=== PATIENT | male | born 1985 | race Caucasian/White ===

== ENCOUNTER 2017-01-04 18:18 | Emergency (ER) | payer OTHER ==
[2017-01-04 18:32] VITALS: TEMP 97.6; BMI 21.8
[2017-01-04] MEDS ORDERED: SODIUM CHLORIDE 1,000 ML IV STA (19:03)
[2017-01-04] MEDS ORDERED: FOLIC ACID INJECTION - 1 MG, THIAMINE HCL 100 MG, MULTIVIT INJECTION ADULT 10 ML in SOD... IVPB ONE (19:04)
--- NOTE | 2017-01-04 19:04 | PDOC ---
History of Present Illness - General History Source: Parent(s) Exam Limitations: Intoxication - History of Present Illness Initial Comments: 31 yo M with a PMHx of asperger's, alcoholism, pancreatitis presents with mother with report of ETOH intoxication. Upon evaluation, patient is somnolent, lethargic and vomiting coffee ground emesis. Patient has extensive scattered superficial abrasions to torso and extremities. . PCP: Dr: Alba Mckeon ([facility]) Psych: Unique chester ([facility]) <Ila Lopez - Last Filed: 01/04/17 19:21> <Magy Escobar - Last Filed: 01/05/17 02:12> - General Chief Complaint: Alcohol intoxication Stated Complaint: INTOX Time Seen by Provider: 01/04/17 18:25 Past History <Ila Lopez - Last Filed: 01/04/17 19:21> - Past Medical History Psychiatric Problems: Yes (depression) Other medical history: autism aspergers. - Psycho/Social/Smoking Cessation Hx Anxiety: No Suicidal Ideation: No Smoking History: Unknown if ever smoked Have you smoked in the past 12 months: No Information on smoking cessation initiated: No Hx Alcohol Use: No Drug/Substance Use Hx: No Substance Use Type: None <Magy Escobar - Last Filed: 01/05/17 02:12> - Past Medical History Allergies/Adverse Reactions: Allergies Allergy/AdvReac Type Severity Reaction Status Date / Time No Allergy Information Allergy Verified 01/04/17 18:32 Available Home Medications: Ambulatory Orders Buspirone HCl [Buspar -] 5 mg PO BID 01/04/17 Clonazepam [Klonopin] 5 mg PO HS 01/04/17 Escitalopram Oxalate [Lexapro -] 10 mg PO DAILY 01/04/17 Review of Systems - Review of Systems Able to Perform ROS?: No (Intoxication) <Ila Lopez - Last Filed: 01/04/17 19:21> *Physical Exam - Vital Signs Last Vital Signs Temp Pulse Resp BP Pulse Ox 97.6 F 98 H 18 108/62 100 01/04/17 18:24 01/04/17 18:24 01/04/17 18:24 01/04/17 18:24 01/04/17 18:24 - Physical Exam Comments: GENERAL: Somnolent. Lethargic. Vomiting coffee ground emesis. HEENT: Normocephalic, atraumatic. PERRL, EOM intact. CARDIOVASCULAR: Normal S1, S2. Regular rate and rhythm. PULMONARY: Clear to auscultation bilaterally. ABDOMEN: Soft, non-distended, non-tender. EXTREMITIES: Normal ROM in all four extremities. Extensive scattered superficial abrasions to torso and extremities. SKIN: Warm, dry. No rash NEUROLOGICAL: No focal neurological deficits. <Ila Lopez - Last Filed: 01/04/17 19:21> - Vital Signs Last Vital Signs Temp Pulse Resp BP Pulse Ox 97.6 F 98 H 18 108/62 100 01/04/17 18:24 01/04/17 18:24 01/04/17 18:24 01/04/17 18:24 01/04/17 18:24 <Magy Escobar - Last Filed: 01/05/17 02:12> ED Treatment Course - LABORATORY CBC & Chemistry Diagram: 01/04/17 19:30 01/04/17 19:30 <Magy Escobar - Last Filed: 01/05/17 02:12> Medical Decision Making - Medical Decision Making 01/05/17 02:06 31 yo male lethargic but vomiting after alcohol binge PMH depression,asperger;s ,pancreatitis. Pt has multiple scattered superficial lacerations and eccchymosis to head,extremities ct scan head no acute intracranial pathology labs reviewed, lipase elevated,LFT wnl- ct scan abd.pel _ no pancreatitis, etoh was 244 pt received banana bag,IVF pt observed for 6 hours and parents were present -he was able to eat and walk to the bathroom unaided -discharged home with his parents Alcoholic gastritis/alcohol abuse <Magy Escobar - Last Filed: 01/05/17 02:12> *DC/Admit/Observation/Transfer - Attestations Scribe Attestion: Documentation prepared by Ila Lopez, acting as certified medical asst for Magy Escobar MD/DO. <Ila Lopez - Last Filed: 01/04/17 19:21> <Magy Escobar - Last Filed: 01/05/17 02:12> Diagnosis at time of Disposition: Alcohol intoxication Qualifiers: Complication of substance-induced condition: with unspecified complication Qualified Code(s): F10.929 - Alcohol use, unspecified with intoxication, unspecified Gastritis, alcoholic Qualifiers: Chronicity: acute Gastritis bleeding: presence of bleeding unspecified Qualified Code(s): K29.20 - Alcoholic gastritis without bleeding - Discharge Dispostion Disposition: HOME Condition at time of disposition: Stable - Patient Instructions Printed Discharge Instructions: DI for Alcohol Abuse, DI for Alcoholic Gastritis Additional Instructions: please advance your diet as tolerated Avoid alcohol Return for any worsening symptoms
[2017-01-04] MEDS ORDERED: ONDANSETRON 4 MG/2 ML VIAL ONE (19:22)
[2017-01-04] MEDS ORDERED: ONDANSETRON 4 MG/2 ML VIAL IVPB ONE (19:35)
[2017-01-04 19:38] VITALS: BP 121/85; PULSE 97
[2017-01-04 19:47] LABS: BASOPHIL 0.5 % (0-2.0); EOSINOPHIL 0.2 % (0-4.5); MEAN CELL VOLUME 84.9 fl (80-96); NEUTROPHILS 82.6 % (42.8-82.8); PLATELET COUNT 210 K/MM3 (134-434); RDW 13.8 % (11.9-15.9); WHITE BLOOD COUNT 10.2 K/mm3 (4.0-10.0)
[2017-01-04 20:13] LABS: ALBUMIN 4.6 g/dl (3.4-5.0); ANION GAP 11 (8-16); BILIRUBIN,TOTAL 0.4 mg/dL (0.2-1.0); CALCIUM 8.6 mg/dL (8.5-10.1); CO2 26 mmol/L (21-32); COCKROFT - GAULT 115.66; GLUCOSE,RANDOM 106 mg/dL (74-106); SGOT/AST 18 U/L (15-37); SGPT/ALT 19 U/L (12-78); TOT PROT 7.4 g/dl (6.4-8.2)
[2017-01-04 20:14] LABS: ALK PHOS 60 U/L (45-117)
[2017-01-04] MEDS ORDERED: PANTOPRAZOLE SODIUM 40 MG in SODIUM CHLORIDE 100 ML IVPB ONE (21:52)
[2017-01-04] MEDS ORDERED: PANTOPRAZOLE SODIUM 100 ML IVPB ONE (21:57)
[2017-01-04 22:56] LABS: URINE MARIJUANA THC NEGATIVE ng/ml (CUTOFF=50)
== END 2017-01-05 01:04 | disposition home or self-care (01) ==
LOC: JER 18:18
PROC: 3E033GC Introduction of Other Therapeutic Substance into Peripheral Vein, Percutaneous Approach (ICD-10-PCS; principal; 2017-01-04)
PROC: 3E0337Z Introduction of Electrolytic and Water Balance Substance into Peripheral Vein, Percutaneous Approach (ICD-10-PCS; 2017-01-04)
DX: F10.929 Alcohol use, unspecified with intoxication, unspecified (principal); K29.20 Alcoholic gastritis without bleeding; F84.5 Asperger's syndrome; F32.9 Major depressive disorder, single episode, unspecified
CPT/HCPCS: 36415; 70450-TC; 74177-TC; 80053; 80307; 83690; 85025; 96361; 96365; 96367; 96375; 99283-25